=== PATIENT | female | born 1960 | race Two or more races ===

== ENCOUNTER 2020-07-01 15:09 | Inpatient (IN) | payer SELFPAY ==
[~2020-07-01] VITALS: Ht 160 cm; Wt 52.2 kg
[2020-07-01] MEDS ORDERED: HYDROMORPHONE 1 MG/1 ML DISP.SYRIN IV ONE (16:30)
[2020-07-01] MEDS ORDERED: ONDANSETRON HCL/PF 4 MG/2 ML VIAL IV ONE (16:30)
[2020-07-01] MEDS ORDERED: PIPERACILLIN /TAZOBACTAM 3.375 G in IV D5W 50 ML IV ONE (16:30)
[2020-07-01] MEDS ORDERED: VANCOMYCIN 1 GM in IV D5W 250 ML IV ONE (16:30)
[2020-07-01 16:45] LABS: BASOPHILS # (AUTO) 0.1 /CMM (0.0-0.2); BASOPHILS % (AUTO) 0.8 % (0.0-2.0); EOSINOPHILS % (AUTO) 1.4 % (0.0-6.0); HEMATOCRIT 39 % (33-45); HEMOGLOBIN 12.8 g/dL (11.5-14.8); LYMPHOCYTES # (AUTO) 0.9 /CMM (0.8-4.8); LYMPHOCYTES % (AUTO) 11.5 % (20.0-44.0); MEAN CORPUSCULAR HGB CONC 33 g/dl (31.0-36.0); MEAN CORPUSCULAR VOLUME 91 fL (82-100); MONOCYTES # (AUTO) 0.6 /CMM (0.1-1.30); NEUTROPHILS # (AUTO) 6.4 /CMM (1.8-8.9); NEUTROPHILS % (AUTO) 79.3 % (43.0-81.0); PLATELET COUNT (AUTO) 228 /CMM (150-450); RED BLOOD CELL COUNT(AUTO) 4.32 MIL/uL (4.0-5.2); WHITE BLOOD COUNT (AUTO) 8.1 K/uL (4.3-11.0)
[2020-07-01 16:57] LABS: CALCIUM, SERUM 9.8 mg/dL (8.5-10.1); CREATININE 6.8 mg/dL (0.6-1.3); POTASSIUM 5.7 mmol/L (3.5-5.1)
[2020-07-01] MEDS ORDERED: PIPERACILLIN /TAZOBACTAM 3.375 G VIAL IV ONE (17:00)
[2020-07-01] MEDS ORDERED: ONDANSETRON HCL/PF 4 MG/2 ML VIAL ONE (17:00)
[2020-07-01] MEDS ORDERED: HYDROMORPHONE 1 MG/1 ML DISP.SYRIN ONE (17:00)
--- NOTE | 2020-07-01 17:00 | NUR ---
US tech at bedside. Pt updated with plan of care
[2020-07-01 17:02] LABS: ALBUMIN 3.2 g/dL (3.4-5.0); BILIRUBIN,DIRECT 0.1 mg/dL (0.0-0.2); BILIRUBIN,TOTAL 0.4 mg/dL (0.2-1.0); TOTAL PROTEIN, SERUM 8.9 g/dL (6.4-8.2)
--- NOTE | 2020-07-01 17:29 | NUR ---
pt asleep respirations even/unlabored.
--- NOTE | 2020-07-01 18:11 | NUR ---
CALLED [employer]. 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
--- NOTE | 2020-07-01 18:23 | NUR ---
covid test negative
--- NOTE | 2020-07-01 18:24 | NUR ---
Awaiting admission, No obvious distress. Status quo. VSS
[2020-07-01] MEDS ORDERED: ZOLPIDEM TARTRATE 5 MG TABLET PO PRN (18:30)
[2020-07-01] MEDS ORDERED: ACETAMINOPHEN 325 MG TABLET PO PRN (18:30)
[2020-07-01] MEDS ORDERED: ONDANSETRON HCL/PF 4 MG/2 ML VIAL IVP PRN (18:30)
[2020-07-01] MEDS ORDERED: Z GUARD REMEDY 2 OZ OINT TP PRN (18:30)
[2020-07-01] MEDS ORDERED: MAGNESIUM HYDROXIDE 30 ML UDC PO PRN (18:30)
[2020-07-01] MEDS ORDERED: ATOR40TA PO (18:36)
[2020-07-01] MEDS ORDERED: SEVE800T28 PO (18:36)
[2020-07-01] MEDS ORDERED: CARV12.52 PO (18:36)
[2020-07-01] MEDS ORDERED: GABA300C PO (18:36)
[2020-07-01] MEDS ORDERED: FURO80TA3 PO (18:36)
[2020-07-01] MEDS ORDERED: INSU100I26 SQ (18:36)
[2020-07-01] MEDS ORDERED: HYDR-4077 PO (18:36)
[2020-07-01] MEDS ORDERED: LISI-603 PO (18:36)
[2020-07-01] MEDS ORDERED: VENL37.591 PO (18:36)
[2020-07-01] MEDS ORDERED: TRAZ-252 PO (18:36)
[2020-07-01] MEDS ORDERED: CLON0.1T PO (18:36)
[2020-07-01] MEDS ORDERED: OMEP20CA15 PO (18:36)
--- NOTE | 2020-07-01 19:20 | NUR ---
BED 312-2
--- NOTE | 2020-07-01 19:26 | NUR ---
Report given to Juice
--- NOTE | 2020-07-01 19:55 | NUR ---
REPORT GIVEN TO RIAZ REYES FOR ROSALIO
[2020-07-01 20:15] VITALS: BP 155/85
--- NOTE | 2020-07-01 20:15 | NUR ---
ADMISSION 59 y/o female transferred from ED by bed. Patient is A/O x3 Latvian speaking, understand some Danish. Skin assessment done, right lateral knee wound. Oriented patient to room, unit, staff. All personal belongings checked at bedside. Fall; Skin precaution maintained.
[2020-07-01] MEDS ORDERED: SODIUM POLYSTYRENE SULFONATE 15 G/60 ML BOTTLE PO ONE (20:30)
[2020-07-01] MEDS ORDERED: VANCOMYCIN 500 MG in IV D5W 100 ML IV PRN (20:30)
[2020-07-01] MEDS: HEPARIN SODIUM, PORCINE 5000 UNITS/1 ML VIAL SQ SCH (20:59)
--- NOTE | 2020-07-01 21:01 | NUR ---
ANTICOAGULANT H/H 12.8 PLT 228 No s/s of bleeding. Heparin Sq given, co-signed by AMY Diallo
[2020-07-01] MEDS ORDERED: DEXTROSE 50%-WATER 50 ML DISP.SYRIN IV PRN (21:30)
--- NOTE | 2020-07-01 21:41 | NUR ---
TRANSFER TO MED SURG-2 R/O COVID Patient to be transferred to Med surg 2 for R/O Covid. Patient reports fever and chills prior arriving to ED. Afebrile at this time 97.3 T Oxygen 95% on room air, denies shortness breath. Novel Worrell virus MARIAH swab to be collected bradley.
[2020-07-01] MEDS: BLOOD SUGAR DIAGNOSTIC 1 EACH STRIP IN SCH (22:01)
[2020-07-01] MEDS: INSULIN REGULAR, HUMAN 100 UNIT/ML 3 ML VIAL SQ PRN (22:01)
[2020-07-01 23:00] VITALS: BP 162/71
--- NOTE | 2020-07-01 23:00 | NUR ---
PATIENT TRANSFERRED TO MED SURG 2 Patient transferred to med surg 2 by bed. Bed side report given to AMY Velarde. All personal belongings send with the patient upon transferred.
--- NOTE | 2020-07-01 23:00 | NUR ---
MS RN OPENING NOTE RECEIVED REPORT FROM RIAZ REYES. TRANSFERRED PATIENT FROM 312 TO 208. WITH BELONGINGS AND CHART. PATIENT IS A/OX3, NEPALI SPEAKING. TOLERATING ROOM AIR. RESPIRATIONS ARE EVEN AND UNLABORED. NO S/S SOB NOTED. NO C/O PAIN AT THIS TIME. IN NO APPARENT DISTRESS. IV ACCESS IN RIGHT WRIST #20 PATENT AND SALINE LOCKED. BED IS LOW AND LOCKED, HOB ELEVATED IN SEMI FOWLERS, SIDE RAILS UP X2, CALL LIGHT WITHIN REACH. WILL CONTINUE TO MONITOR.
--- NOTE | 2020-07-02 00:49 | NUR ---
ms rn note informed dr. nixon that patients bp is 162/67. telephone order clonidine 0.1mg q6hr prn sbp >160. order read back noted and carried out. will continue to monitor.
--- NOTE | 2020-07-02 01:20 | NUR ---
ms rn note reassess bp 155/76. will not administer clonidine. will continue to monitor.
[2020-07-02] MEDS: HYDROCODONE/APAP 5/325MG TABLET PO PRN ×5 (03:39→23:59)
--- NOTE | 2020-07-02 03:39 | NUR ---
ms rn note administered prn zofran 4mg for c/o nausea and norco 5 for c/o pain 7/10 in both legs. will continue to monitor.
--- NOTE | 2020-07-02 04:10 | NUR ---
MS RN NOTE PATIENT HAS A SKIN CHANGE NOTED ON RIGHT ELBOW. PHOTOS TAKEN. WOUND CONSULT PLACED. SKIN IS SWOLLEN, WARM TO TOUCH, HARD IN SOME AREAS. ICED AND ELEVATED. WILL CONTINUE TO MONITOR. Addendum: 07/02/20 at 0439 by BARBARA HDEZ RN PLEASE DISREGARD NOTE ABOVE. DOCUMENTED UNDER WRONG PATIENT.
[2020-07-02] MEDS: BLOOD SUGAR DIAGNOSTIC 1 EACH STRIP IN SCH ×4 (06:40→21:24)
--- NOTE | 2020-07-02 06:50 | NUR ---
MS RN CLOSING NOTE PATIENT RESTING IN BED. A/OX3. REMAINS TOLERATING ROOM AIR. NO RESP DISTRESS. NO DISTRESS. IV ACCESS MAINTAINED IN RIGHT WRIST #20 PATENT AND SALINE LOCKED. PLACED SIGN ON WALL ABOVE PATIENT BED TO NOTIFY STAFF NO LAB OR BP ON LEFT ARM D/T HD SITE. BED REMAINS LOW AND LOCKED, HOB ELEVATED IN SEMI FOWLERS, SIDE RAILS UP X2, CALL LIGHT WITHIN REACH. WILL ENDORSE TO NEXT SHIFT.
--- NOTE | 2020-07-02 07:36 | NUR ---
MS/RN OPENING NOTES RECEIVED PATIENT ON BED, AWAKE, ALERT AND ORIENTED X 3. . PATIENT IN NO APPARENT RESPIRATORY DISTRESS NOTED. PATIENT COMPLAINED OF PAIN RATED 7/10 NORCO 5/325 MG 1 TAB WAS GIVEN. WILL CONTINUE TO MONITOR.
[2020-07-02 07:55] LABS: BASOPHILS # (AUTO) 0.1 /CMM (0.0-0.2); EOSINOPHILS % (AUTO) 1.9 % (0.0-6.0); HEMATOCRIT 37 % (33-45); HEMOGLOBIN 11.8 g/dL (11.5-14.8); LYMPHOCYTES # (AUTO) 1.2 /CMM (0.8-4.8); LYMPHOCYTES % (AUTO) 16.1 % (20.0-44.0); MEAN CORPUSCULAR HGB CONC 32 g/dl (31.0-36.0); MEAN CORPUSCULAR VOLUME 92 fL (82-100); MONOCYTES # (AUTO) 0.7 /CMM (0.1-1.30); MONOCYTES % (AUTO) 8.9 % (2.0-12.0); NEUTROPHILS # (AUTO) 5.3 /CMM (1.8-8.9); NEUTROPHILS % (AUTO) 72.1 % (43.0-81.0); PLATELET COUNT (AUTO) 220 /CMM (150-450); RED BLOOD CELL COUNT(AUTO) 4.04 MIL/uL (4.0-5.2); WHITE BLOOD COUNT (AUTO) 7.3 K/uL (4.3-11.0)
[2020-07-02 08:00] VITALS: BP 166/79
[2020-07-02] MEDS: HEPARIN SODIUM, PORCINE 5000 UNITS/1 ML VIAL SQ SCH ×2 (08:13→21:03)
[2020-07-02 08:21] LABS: CALCIUM, SERUM 9.1 mg/dL (8.5-10.1); MAGNESIUM 2.7 mg/dL (1.8-2.4); PHOSPHORUS 6.6 mg/dL (2.5-4.9)
[2020-07-02 08:33] LABS: CREATININE 7.9 mg/dL (0.6-1.3)
[2020-07-02 08:36] LABS: POTASSIUM 6.2 mmol/L (3.5-5.1)
--- NOTE | 2020-07-02 08:50 | NUR ---
MS/RN NOTES HOME MEDICATION RECONCILIATIONS ANNIKA IS AWARE.
--- NOTE | 2020-07-02 09:36 | NUR ---
MS/RN NOTES BUN 7.9 POTASSIUM 6.2 MD IS AWARE. NO NEW ORDER AT THIS TIME.
[2020-07-02] MEDS ORDERED: DEXTROSE 50%-WATER 50 ML DISP.SYRIN IVP ONE (12:00)
[2020-07-02] MEDS ORDERED: INSULIN REGULAR, HUMAN 100 UNIT/ML 3 ML VIAL IV ONE (12:00)
[2020-07-02] MEDS: INSULIN REGULAR, HUMAN 100 UNIT/ML 3 ML VIAL SQ PRN ×3 (12:44→21:30)
[2020-07-02] MEDS: CLONIDINE HCL 0.1 MG TABLET PO PRN ×2 (13:04→23:05)
[2020-07-02 15:34] LABS: POTASSIUM 4.7 mmol/L (3.5-5.1)
[2020-07-02 15:39] LABS: CREATININE 8.5 mg/dL (0.6-1.3)
[2020-07-02 16:00] VITALS: BP 163/80
--- NOTE | 2020-07-02 19:14 | NUR ---
MS/RN CLOSING NOTES PATIENT IS ON BED. PATIENT IN NO APPARENT RESPIRATORY DISTRESS NOTED. BREATHING IS REGULAR AND UNLABORED, SATURATION AT 100%. PATIENT DENIES PAIN AT THIS TIME. IV ACCESS AT RIGHT WRIST # 20 PATENT AND INTACT PATENT AND INTACT SEEN AND EXAMINED BY MD WITH ORDERS MADE AND CARRIED OUT. ALL DUE MEDICATION WAS GIVEN. SAFETY PRECAUTIONS WAS IN PLACED. BED IN LOWEST AND LOCKED POSITION. SIDERAILS UP X 2. CALL LIGHT WITHIN REACH. WILL ENDORSED TO [facility] FOR [facility].
--- NOTE | 2020-07-02 19:45 | NUR ---
ASLEEP ON ROUNDS. HOB UP 45 DEGREES. RESP EVEN AND UNLABORED. NOT AWAKENED IV SITE W/O REDNESS OR EDEMA
[2020-07-02 20:00] VITALS: BP 154/76
--- NOTE | 2020-07-02 23:33 | NUR ---
MS RN NOTES SPOKE WITH LAB; COVID RESULTS NEGATIVE; SPOKE WITH 3W REGARDING RESULTS, AWAITING BED TO BE AVAILABLE, PRIMARY NURSE, AMY ANDERSON MADE AWARE
[2020-07-03] VITALS (8 sets, daily range): BP systolic 154–184; BP diastolic 69–102
[2020-07-03] MEDS: HYDROCODONE/APAP 5/325MG TABLET PO PRN ×3 (00:23→09:13)
--- NOTE | 2020-07-03 01:08 | NUR ---
transfered to room 312-2 via bed cell phone and her autocad with her her w/c label with her name with her and her belongings. She is alert and orientated x3 kazakh speaking requiested her right ankle ulcer be cleaned and redressed done so with NSS and gauzr and kerlex wrap medicated with [place] prior transfer for leg pain.
--- NOTE | 2020-07-03 01:36 | NUR ---
intern retail of care notes: received report from tommie wyatt. pt brought to the unit via bed. pt pcr covid negative. pt a/o x4, on ra respirations even and unlabored. iv access patent and flushing well, on hl. pt has fady avf, precautions for left arm posted in the room. inventory of belonging performed by business relationship manager, pt has own fww. vs taken and recorded. wound care performed, cleansed right ankle open wound with ns pat dry, transparent dressing applied, covered with kerlix secured with paper tape. offloaded rle on pillows. tele monitoring placed sinus rhythm with inverted t wave hr 65. snacks provided to pt. use French speaking nut former to communicate with pt. discussed plan of care, podiatry and vascular consult in am. pt voicing she would like to be transferred to [facility] no[facility] in am, bilingual patient support caseworker consult in placed. safety precautions for fall initiated, call light in reach, will monitor accordingly. Addendum: 07/03/20 at 0350 by RICHARD PADILLA RN correction of entry: pt has wheelchair, not fww.
[2020-07-03] MEDS: CLONIDINE HCL 0.1 MG TABLET PO PRN ×3 (04:37→14:32)
--- NOTE | 2020-07-03 04:37 | NUR ---
prn catapres: prn catapres administered for htb 162//69 hr 70.
--- NOTE | 2020-07-03 04:42 | NUR ---
prn norco: pt c/o 04/01 right foot pain, prn norco 5/325 mg tab administered at this time, per pt request.
[2020-07-03] MEDS: BLOOD SUGAR DIAGNOSTIC 1 EACH STRIP IN SCH ×3 (06:41→17:53)
[2020-07-03] MEDS: INSULIN REGULAR, HUMAN 100 UNIT/ML 3 ML VIAL SQ PRN ×3 (06:41→17:55)
--- NOTE | 2020-07-03 06:45 | NUR ---
prn tylenol: prn tylenol administered for c/o right foot pain, ps 11/30.
--- NOTE | 2020-07-03 06:52 | NUR ---
End of shift report: Right ankle wound dressing remains c/d/i. no active bleeding noted. Iv access remains patent and flushing well, on hl, no s/s of iv infiltration noted. Plan of care: Podiatry, vascular consult, case management consult. .Vs remains stable, needs attended. Safety precautions for fall remains engaged, call light in reach. Will endorse to day rn for rosa maria
--- NOTE | 2020-07-03 07:44 | NUR ---
RN OPEN NOTES PATIENT IS AWAKE A/O X 4 WITH NO SIGNS OF DISTRESS IN ROOM AIR. R WRIST#20G SL AND L UA AVF. NO SIGNS OF PAIN AT THIS MOMENT. WHEELCHAIR AT BED SIDE. SAFETY MEASURES ARE APPLIED, BED IS LOW AND LOCKED POSITION. SIDE RAILS UP X 2 FOR SAFETY. CALL LIGHT WITHIN REACH. WILL CONTINUE TO MONITOR.
[2020-07-03] MEDS: HEPARIN SODIUM, PORCINE 5000 UNITS/1 ML VIAL SQ SCH (08:15)
[2020-07-03 08:43] LABS: BASOPHILS % (AUTO) 0.2 % (0.0-2.0); EOSINOPHILS % (AUTO) 2.4 % (0.0-6.0); HEMATOCRIT 39 % (33-45); HEMOGLOBIN 12.5 g/dL (11.5-14.8); LYMPHOCYTES % (AUTO) 16.9 % (20.0-44.0); MEAN CORPUSCULAR HGB CONC 32 g/dl (31.0-36.0); MEAN CORPUSCULAR VOLUME 91 fL (82-100); MONOCYTES # (AUTO) 0.5 /CMM (0.1-1.30); MONOCYTES % (AUTO) 9.5 % (2.0-12.0); PLATELET COUNT (AUTO) 197 /CMM (150-450); RED BLOOD CELL COUNT(AUTO) 4.26 MIL/uL (4.0-5.2); WHITE BLOOD COUNT (AUTO) 5.6 K/uL (4.3-11.0)
[2020-07-03 09:08] LABS: CALCIUM, SERUM 8.9 mg/dL (8.5-10.1); MAGNESIUM 2.7 mg/dL (1.8-2.4)
[2020-07-03 09:25] LABS: PHOSPHORUS 9.3 mg/dL (2.5-4.9); POTASSIUM 6.7 mmol/L (3.5-5.1)
[2020-07-03 09:26] LABS: CREATININE 9.3 mg/dL (0.6-1.3)
--- NOTE | 2020-07-03 09:26 | NUR ---
LAB CRITICAL VALUE K 6.7, BUN 90 CREATINE 9.3 REPEATED BACK LET KNOW ORDERED INSULIN AND DEXTROSE. NOTED AND CARRIED OUT.
--- NOTE | 2020-07-03 10:00 | NUR ---
HELD INSULIN AND DEXTROSE PATIENT IS NOW GOING TO START HEMODIALYSIS . WILL CONTNUE TO MONITOR.
[2020-07-03] MEDS ORDERED: INSULIN REGULAR, HUMAN 100 UNIT/ML 10 ML VIAL IV ONE (10:30)
[2020-07-03] MEDS ORDERED: DEXTROSE 50%-WATER 50 ML DISP.SYRIN IVP ONE (10:30)
[2020-07-03 13:47] LABS: CALCIUM, SERUM 8.8 mg/dL (8.5-10.1); CREATININE 4.9 mg/dL (0.6-1.3); POTASSIUM 3.6 mmol/L (3.5-5.1)
--- NOTE | 2020-07-03 14:00 | NUR ---
HD DIALYSIS OUTPUT 2L.
--- NOTE | 2020-07-03 16:00 | NUR ---
PATIENT BLOOD PRESSURE 184/102 LET ANNIKA ARGUELLES KNOW . AWAITING FOR NEW ORDERS. WILL CONTINUE TO MONITOR.
--- NOTE | 2020-07-03 16:30 | NUR ---
DID NOT ADMINISTER BP MEDICATIONS PATIENT REFUSES MEDICATION AND WANTS TO GO AMA AND SAID SHE WILL TAKE HER BP MEDICATIONS AT HOME.
--- NOTE | 2020-07-03 16:45 | NUR ---
PATIENT WANTED TO LEAVE AMA BECAUSE SHE DID NOT WANTED TO WAIT TO GET SEEN BY BOX REPAIRER. AFTER EXPLAINING TO HER THE RISKS AND BENEFITS SHE STILL INSISTED TO LEAVE AMA. INFORMED CHARGE NURSE JYOTI ABOUT PATIENT WANTING TO LEAVE AMA. CHARGE NURSE WENT TO TALK TO PATIENT AND PATIENT STILL REFUSES MEDICAL TREATMENT AND WANTS TO PROCEED WITH AMA. INFORMED DOCTOR ANNIKA ARGUELLES. SHE IS AWARE OF PATIENT AMA. PATIENT SIGNED AMA PAPER WORK AND REFUSED DISCHARGE PICTURE. BELONGING LIST SIGNED AND COMPLETED IV R WRIST IV REMOVED WITH NO SIGNS OF BLEEDING AND COVERED. AMA INCIDENT REPORT COMPLETED.
[2020-07-03 17:41] LABS: CALCIUM, SERUM 9.8 mg/dL (8.5-10.1); CREATININE 5.7 mg/dL (0.6-1.3); POTASSIUM 4.7 mmol/L (3.5-5.1)
[2020-07-03] MEDS ORDERED: SEVELAMER CARBONATE 800 MG TABLET PO SCH (18:30)
[2020-07-03] MEDS ORDERED: CARVEDILOL 12.5 MG TABLET PO SCH (18:30)
[2020-07-03] MEDS ORDERED: FUROSEMIDE 80 MG TABLET PO SCH (18:30)
[2020-07-03] MEDS ORDERED: hydrALAZINE HCL 50 MG TABLET PO SCH (18:30)
--- NOTE | 2020-07-03 19:53 | NUR ---
AMA: PT LEFT THE UNIT VIA OWN WHEELCHAIR, PT WAS PICKED UP BY FAMILY MEMBER, JOVON GARCIA WHEELED PT DOWNSTAIR. PT LEFT VIA PRIVATE CAR.
[2020-07-03] MEDS ORDERED: TRAZODONE 50 MG TABLET PO SCH (22:00)
[2020-07-03] MEDS ORDERED: ATORVASTATIN 40 MG TABLET PO SCH (22:00)
[2020-07-03] MEDS ORDERED: CLONIDINE HCL 0.1 MG TABLET PO SCH (22:00)
[2020-07-04] MEDS ORDERED: PANTOPRAZOLE 40 MG TABLET.DR PO SCH (09:00)
[2020-07-04] MEDS ORDERED: GABAPENTIN 300 MG CAPSULE PO SCH (09:00)
[2020-07-04] MEDS ORDERED: LISINOPRIL (20MG) 20 MG TABLET PO SCH (09:00)
[2020-07-04] MEDS ORDERED: VENLAFAXINE XR 37.5 MG CAP.SR.24H PO SCH (09:00)
== END 2020-07-03 19:40 | disposition left against medical advice (07) | DRG 559 ==
LOC: ER 15:18 → MED 19:45 → MEDSG2 23:08 → TELE 07-03 00:51 → MED 07-03 08:14
PROVIDERS: ADMIT Nurse Practitioner Acute Care; ATTEND Nurse Practitioner Acute Care
PROC: 5A1D70Z Performance of Urinary Filtration, Intermittent, Less than 6 Hours Per Day (ICD-10-PCS; principal; 2020-07-03)
DX: T84.89XA Other specified complication of internal orthopedic prosthetic devices, implants and grafts, initial encounter (principal); J15.9 Unspecified bacterial pneumonia; N18.6 End stage renal disease; I12.0 Hypertensive chronic kidney disease with stage 5 chronic kidney disease or end stage renal disease; E87.1 Hypo-osmolality and hyponatremia; L97.318 Non-pressure chronic ulcer of right ankle with other specified severity; Y83.8 Other surgical procedures as the cause of abnormal reaction of the patient, or of later complication, without mention of misadventure at the time of the procedure; Y92.89 Other specified places as the place of occurrence of the external cause; E11.621 Type 2 diabetes mellitus with foot ulcer; E11.22 Type 2 diabetes mellitus with diabetic chronic kidney disease; Z99.2 Dependence on renal dialysis; D64.9 Anemia, unspecified; E87.5 Hyperkalemia; N25.0 Renal osteodystrophy; E11.51 Type 2 diabetes mellitus with diabetic peripheral angiopathy without gangrene; Z79.4 Long term (current) use of insulin
CPT/HCPCS: 36415; 71045-TC; 73610-TC; 80048-TC; 80061-TC; 80076-TC; 80202-TC; 82962-TC; 83605-TC; 83735-TC; 84100-TC; 84484-TC; 85025-TC; 85730-TC; 87040-TC; 87081-TC; 90935-TC; 93926-TC; 93971-TC; A6253; A6403; C9803-CS; G0378; J1170; J1644; J1815; J2405; J2543; J3370; J7040; J7060; U0003-CS